=== PATIENT | female | born 1965 | race American Indian/Alaskan Native ===

== ENCOUNTER 2017-01-08 08:43 | Outpatient (CLI) | payer BC ==
[2017-01-08 09:46] LABS: Blood Urea Nitrogen 15 mg/dL (7-17)
--- NOTE | 2017-01-08 12:44 | Nuclear Medicine Report ---
BONE SCAN: History: Left breast cancer. Comparison: CT chest, abdomen and pelvis performed the same day. After injection of isotope, gamma camera imaging of the bony system was done. There is a normal uptake of isotope throughout the bony structures without areas of significantly increased or decreased uptake. Normal uptake in the urinary system is seen. IMPRESSION: Negative bone scan.
--- NOTE | 2017-01-08 15:17 | Cat Scan Report ---
CT CHEST WITH CONTRAST: HISTORY: Left breast cancer. TECHNIQUE: Helical CT following IV contrast. Sagittal and coronal reformatted images. FINDINGS: Heart size is normal. There is no evidence of adenopathy within the mediastinum. Pulmonary oyvani are free of any mass and the lungs are clear of infiltrates. The pleura is unremarkable. No masses involve the chest wall. No bony lesion. Bilateral breast prostheses are intact. IMPRESSION: Unremarkable CT scan of the chest.
--- NOTE | 2017-01-08 15:21 | Cat Scan Report ---
CT SCAN OF THE ABDOMEN AND PELVIS WITH CONTRAST: HISTORY: Left breast cancer. TECHNIQUE: Helical CT in 1.25mm intervals following IV contrast. Sagittal and coronal reconstructions. FINDINGS: The liver is normal in size and is without focal defect. No gallstones or biliary dilatation are noted. The spleen and pancreas demonstrate a normal size and attenuation with no evidence of abnormal mass. The left kidney and collecting system are unremarkable. There is a duplicated collecting system within the right kidney. The superior moiety is dilated. There is diffuse cortical thinning in the superior right kidney consistent with a chronic process. The lower moiety is not dilated although there is a 5.4 mm stone in the mid ureter of the lower moiety on image 420, series 2. The ureters appear diffuse distally just before the UVJ. There is no obvious ureterocele. The bladder is unremarkable. The adrenal glands are normal. There is no intestinal obstruction or ascites. Normal appendix. The abdominal aorta is normal. Hysterectomy changes are noted. No adnexal cyst or mass. There is no evidence of peritoneal air or fluid. There is no evidence of any abnormal masses or fluid collections within the pelvis. No adenopathy is identified. No suspicious bony lesion. IMPRESSION: No evidence for metastatic disease to the abdomen or pelvis. 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 The superior moiety is obstructed with diffuse cortical thinning of the superior right kidney. The inferior Katt. contains a 5.4 mm stone in the mid ureter. Please correlate for ureteral symptoms. Hysterectomy.
== END 2017-01-08 08:44 | disposition home or self-care (01) ==
LOC: NM 08:43
PROVIDERS: ATTEND Internal Medicine Hematology & Oncology
DX: C50.912 Malignant neoplasm of unspecified site of left female breast (principal); N20.1 Calculus of ureter; Z90.710 Acquired absence of both cervix and uterus; Z98.82 Breast implant status
CPT/HCPCS: 36415; 71260; 74177; 78306; 82565; 84520; A9503; Q9967

== ENCOUNTER 2017-02-20 12:48 | Day surgery (SDC) | payer BC ==
[~2017-02-20 12:48] MED LIST: ANCEF/STERILE WATER 2 GM/20 ML 2 GM/20 ML SYRINGE IV NR
[2017-02-20] MEDS ORDERED: NACL BACTERIOSTATIC INFILTRATI ONE (15:00)
[2017-02-20 15:40] LABS: Hematocrit 41.5 % (30.3-42.9); Hemoglobin 13.7 gm/dl (10.1-14.3)
--- NOTE | 2017-02-20 15:43 | Anesthesia Consultation ---
Anesthesia Consult and Med Hx Date of service: 02/20/17 - Airway Anesthetic Teeth Evaluation: Good, Crowns ROM Head & Neck: Adequate Mental/Hyoid Distance: Adequate Mallampati Class: Class II Intubation Access Assessment: Probably Good - Pulmonary Exam CTA: Yes - Cardiac Exam Cardiac Exam: RRR - Pre-Operative Health Status ASA Pre-Surgery Classification: ASA2 Proposed Anesthetic Plan: General - Pulmonary Hx Smoking: No Hx Sleep Apnea: No (EUNICE PRE SCREEN HIGH RISK) - Cardiovascular System Hx Hypertension: Yes (2009) - Hematic Hx Anemia: Yes (WITH CHEMO, 2009) - Other Systems Hx Cancer: Yes (HX of Breast Cancer) - Additional Comments Anesthesia Medical History Comments: NO BP ON RIGHT ARM
[2017-02-20] MEDS ORDERED: VERSED IV NR (15:44)
--- NOTE | 2017-02-20 15:44 | Anesthesia Day of Surgery ---
Anesthesia Day of Surgery - Day of Surgery Patient Examined: Yes Patient H&P Reviewed: Yes Patient is NPO: Yes
[2017-02-20] MEDS ORDERED: PEPCID IV NR (16:00)
[2017-02-20] MEDS ORDERED: NACL 0.9% 1000 ML 1,000 ML IV SCH (16:00)
[2017-02-20] MEDS ORDERED: ZOFRAN IV PRN (16:39)
[2017-02-20] MEDS ORDERED: DILAUDID IV PRN (16:39)
[2017-02-20] MEDS ORDERED: NORCO 5/325 PO PRN (16:39)
[2017-02-20] MEDS ORDERED: DIPRIVAN 10 MG/ML IV ONE (16:48)
[2017-02-20] MEDS ORDERED: SUBLIMAZE ONE (16:48)
--- NOTE | 2017-02-20 16:54 | Post Operative Note ---
Date of procedure: 02/20/17 Pre-op diagnosis: r renal stone Post-op diagnosis: same Findings: r hydro duplex r ston e Procedure: cysto r rpg stent Anesthesia: GETA Surgeon: DINORA ALMAGUER Estimated blood loss: none Condition: stable Disposition: PACU
--- NOTE | 2017-02-20 16:55 | Discharge Summary ---
Short Stay Discharge Plan Activity: other (no straining ) Weight Bearing Status: Full Weight Bearing Diet: regular Special Instructions: other (inc fluids ) Durable Medical Equipment Needed Upon Discharge: other (pt has j stent ) Follow up with: CHAYA STEVENS MD [Primary Care Provider] - 7 Days DINORA ALMAGUER MD [Staff Physician] - 7 Days
[2017-02-20] MEDS ORDERED: DECADRON ONE (17:01)
[2017-02-20] MEDS ORDERED: ZOFRAN ONE (17:01)
[2017-02-20] MEDS ORDERED: XYLOCAINE MPF 2% ONE (17:01)
[2017-02-20] MEDS ORDERED: WATER FOR IRRIG STERILE IR ONE ×2 (17:09)
[2017-02-20] MEDS ORDERED: OMNIPAQUE 300 MG/50 ML (CATH LAB) IV ONE ×2 (17:11)
[2017-02-20] MEDS ORDERED: ROBINUL ONE (17:12)
[2017-02-20] MEDS ORDERED: NACL 0.9% 100 ML ONE (17:15)
[2017-02-20] MEDS ORDERED: NEO SYNEPHRINE ONE (17:15)
[2017-02-20] MEDS ORDERED: ePHEDrine SULFATE ONE (17:16)
--- NOTE | 2017-02-20 18:30 | Post Anesthesia Evaluation ---
- Post Anesthesia Evaluation Patient Participated: Yes Airway Patent: Yes Stable Respiratory Function: Yes Temp > 96.8F: Yes Pain Manageable: Yes Adequeate Hydration: Yes Anesthesia Complications: No Block Receding Appropriately: Not Applicable
[2017-02-20 18:42] VITALS: BP 125/76
--- NOTE | 2017-02-20 21:11 | Operative Report ---
PREOPERATIVE DIAGNOSIS: Right ureteral stone. POSTOPERATIVE DIAGNOSES: Right ureteral stone with complete duplication on the right side and the stone in the lower pole moiety and a very hydronephrotic upper pole moiety, looks like it is a single sheath with 2 separate ureters. PROCEDURE: Cystoscopy, right retrograde in both ureters and 2 double-J stent in both ureters. SURGEON: Blake Sinclair MD ANESTHESIA: General. FINDINGS: This is a woman who has been having right flank pain for quite some time. She has been found on CT to have a duplex system with a very hydronephrotic upper pole system. She now presents for the cystoscopy. DESCRIPTION OF PROCEDURE: The patient was brought to the operating room and placed on the operating table. Following induction of anesthesia, placed in lithotomy position, prepped and draped in usual sterile fashion. Cystourethroscopy showed no bladder tumors. The epithelium was normal. There were two distinct ureteral orifices on the right side. More patulous was from the upper pole, was more distal and severe hydronephrosis at the level of vessels and there were no filling defects, but a lots of hydronephrosis. The ureter was straightened out with a wire, we placed a 28 cm 6-Thai in the upper pole moiety. In the lower pole, we saw a stone, in the ____ lower ureter, but it was very tight. There was question whether there was any infection, so to be safe, ____ looked like in a single sheath. We placed a wire in the lower pole moiety and we had some difficulty with very tight around the stone up, so we placed a 5-Thai stent coiled in the lower pole moiety. The patient tolerated the procedure well. She will come back for stone extraction and possible laser. We did not want to damage either ureter and so we left 2 stents, one in the upper pole moiety one in the lower pole moiety, brought to recovery room, family notified, in stable condition. JOB# [id number] ELIJAH/DANIA
--- NOTE | 2017-02-21 10:30 | Fluoroscopy Report ---
RETROGRADE PYELOGRAM: History: Right ureteral calculi, nephrolithiasis. The left pyelogram was not performed. The right pyelogram images demonstrate dilated upper and lower moieties of a duplicated right renal collecting system. Subsequent images demonstrate placement of 2 ureteral stents on the right side which adequately drain the collecting systems. Ureteroscopy was also performed by Dr. Sinclair, please correlate with the procedural report.
== END 2017-02-20 19:15 | disposition home or self-care (01) ==
LOC: OR 12:48
PROVIDERS: ATTEND Urology
DX: N13.2 Hydronephrosis with renal and ureteral calculous obstruction (principal); I10 Essential (primary) hypertension; D64.9 Anemia, unspecified; Z85.3 Personal history of malignant neoplasm of breast
CPT/HCPCS: 36415; 52332; 74420; 85014; 85018; C1726; C1758; C1769; C2617; J0690; J1100; J2250; J2370; J2405; J2704; J3010; J7030; Q9967

== ENCOUNTER 2017-03-13 10:38 | Day surgery (SDC) | payer BC ==
[~2017-03-13 10:38] MED LIST changes: +NACL 0.9% 1000 ML 1,000 ML IV SCH; +OMNIPAQUE 300 MG/50 ML (CATH LAB) IV ONE; +PEPCID PO NR; +VERSED IV NR; +WATER FOR IRRIG STERILE IR ONE
--- NOTE | 2017-03-13 11:11 | Anesthesia Consultation ---
Anesthesia Consult and Med Hx Date of service: 03/13/17 - Airway Anesthetic Teeth Evaluation: Good ROM Head & Neck: Adequate Mental/Hyoid Distance: Adequate Mallampati Class: Class II Intubation Access Assessment: Probably Good - Pre-Operative Health Status ASA Pre-Surgery Classification: ASA2 - Pulmonary Hx Smoking: No Hx Sleep Apnea: No (EUNICE PRE SCREEN HIGH RISK) - Cardiovascular System Hx Hypertension: Yes (2009) - Central Nervous System Hx Back Pain: Yes (FROM STONE) - Endocrine Hx Renal Disease: Yes (kidney stones) - Hematic Hx Anemia: Yes (WITH CHEMO, 2009) - Other Systems Hx Cancer: Yes (HX of Breast Cancer, s/p bilateral mastectomy with reconstruction)
--- NOTE | 2017-03-13 11:12 | Anesthesia Day of Surgery ---
Anesthesia Day of Surgery - Day of Surgery Patient Examined: Yes Patient H&P Reviewed: Yes Patient is NPO: Yes
[2017-03-13] MEDS ORDERED: NACL BACTERIOSTATIC INFILTRATI ONE (11:42)
[2017-03-13] MEDS ORDERED: SUBLIMAZE ONE (12:40)
[2017-03-13] MEDS ORDERED: DIPRIVAN 10 MG/ML IV ONE (12:40)
[2017-03-13] MEDS ORDERED: NORCO 5/325 PO PRN (12:41)
[2017-03-13] MEDS ORDERED: DILAUDID IV PRN (12:41)
[2017-03-13] MEDS ORDERED: ZOFRAN IV PRN (12:41)
[2017-03-13] MEDS ORDERED: WATER FOR IRRIG STERILE IR ONE (12:57)
[2017-03-13] MEDS ORDERED: DECADRON ONE (12:59)
[2017-03-13] MEDS ORDERED: ZOFRAN ONE (12:59)
[2017-03-13] MEDS ORDERED: XYLOCAINE MPF 2% ONE (13:00)
[2017-03-13] MEDS ORDERED: OMNIPAQUE 300 MG/50 ML (CATH LAB) IV ONE (13:01)
--- NOTE | 2017-03-13 13:40 | Post Operative Note ---
Date of procedure: 03/13/17 Pre-op diagnosis: r dupex with stone Post-op diagnosis: same Findings: as above Procedure: cysto rpg r ureteroscopy laser j stent Anesthesia: GETA Surgeon: DINORA ALMAGUER Estimated blood loss: none Pathology: list (stone) Specimen disposition: to lab Condition: stable Disposition: PACU
--- NOTE | 2017-03-13 13:41 | Discharge Summary ---
Short Stay Discharge Plan Activity: other (no straining ) Weight Bearing Status: Full Weight Bearing Diet: regular, low salt Special Instructions: other (inc fluids ) Durable Medical Equipment Needed Upon Discharge: other (has 2 j stents ) Follow up with: CHAYA STEVENS MD [Primary Care Provider] - 7 Days DINORA ALMAGUER MD [Staff Physician] - 14 Days
--- NOTE | 2017-03-13 13:59 | Post Anesthesia Evaluation ---
- Post Anesthesia Evaluation Patient Participated: Yes Airway Patent: Yes Stable Respiratory Function: Yes Nausea/Vomiting: No Temp > 96.8F: Yes Pain Manageable: Yes Adequeate Hydration: Yes Anesthesia Complications: No Block Receding Appropriately: Not Applicable Patient on Ventilator: No
--- NOTE | 2017-03-13 17:42 | Operative Report ---
PREOPERATIVE DIAGNOSIS: Duplex right collecting system with large obstructing stone in right lower pole moiety and chronic dilatation of the upper pole moiety. POSTOPERATIVE DIAGNOSIS: Duplex right collecting system with large obstructing stone in right lower pole moiety and chronic dilatation of the upper pole moiety. PROCEDURE: Cystoscopy, right retrograde in the lower pole with right lower ureteroscopy, laser of large stone and double-J stent replacement. SURGEON: Blake Sinclair M.D. ANESTHESIA: General. FINDINGS: This is a woman from [place] who had a very dilated upper pole moiety and lower pole moiety with an obstructing stone lower pole now presents for treatment. This is a staged procedure because it was so edematous and she had a bifid system. We did not want to damage either one of the ureters. DESCRIPTION OF PROCEDURE: The patient brought to the operating room and placed on the operating table. Following induction of anesthesia, placed in lithotomy position, prepped and draped in usual sterile fashion. The lower pole stent was grasped and a wire coiled in the collecting system without difficulty in the lower pole. At this point, ureteroscopy showed the stone, which was severely edematous around the wall of the ureter. Using a laser we broke it up into about 10 pieces. One small piece was sent to pathology. The patient tolerated the procedure well. While ureteroscope was proximal to where the stone was obstructing we placed another wire and a double-J stent in 22 coiled in the lower pole collecting system and bladder. The patient tolerated the procedure well. No significant bleeding, no significant complications, brought to recovery room. Family notified with two stents will be removed in about 2 weeks in stable condition. JOB# [id number] ELIJAH/DANIA
[2017-03-13 18:12] VITALS: BP 119/72
--- NOTE | 2017-03-14 08:00 | Fluoroscopy Report ---
SEVEN FLUOROSCOPIC IMAGES AT RIGHT RETROGRADE PYELOGRAM: 03/13/17 CLINICAL: Right ureteral stone. FINDINGS: [employer] images two right ureteral stents.. Subsequent images demonstrate exchange of the lower stent. For more detail, please refer to the operative report.
== END 2017-03-13 15:45 | disposition home or self-care (01) ==
LOC: OR 10:38
PROVIDERS: ATTEND Urology
DX: N20.0 Calculus of kidney (principal); N28.89 Other specified disorders of kidney and ureter; Q63.0 Accessory kidney; I10 Essential (primary) hypertension; D64.9 Anemia, unspecified; G47.33 Obstructive sleep apnea (adult) (pediatric); Z85.3 Personal history of malignant neoplasm of breast; Z90.13 Acquired absence of bilateral breasts and nipples; Z79.899 Other long term (current) drug therapy; Z88.8 Allergy status to other drugs, medicaments and biological substances
CPT/HCPCS: 36415; 52356; 74420; 82365; A4217; C1758; C1769; C2617; J0690; J1100; J2250; J2405; J2704; J7030; Q9967; J3010

== ENCOUNTER 2017-07-15 08:41 | Outpatient (CLI) | payer BC ==
--- NOTE | 2017-07-15 09:29 | Ultrasound Report ---
Bilateral breast ultrasound: Bilateral mastectomies with submuscular implants. No palpable findings or other symptoms at this time. Whole breast ultrasound fails to identify any focal parenchymal abnormality, abnormal shadowing or other significant finding. The implants appear intact. Of note is that CT scan in December 2016 showed no significant chest wall findings otherwise. Impression: No evidence of recurrent disease identified. Recommendation: Followup per your protocol. BI-RADS CATEGORY: 2 = Benign ACR BI-RADS MAMMOGRAPHIC CODES: 0 = Needs additional imaging evaluation; 1 = Negative; 2 = Benign; 3 = Probably benign; 4 = Suspicious; 5 = Malignant; 6 = Known biopsy-proven malignancy COMMENT: 1. Dense breast tissue, i.e., adenosis, fibrocystic changes, etc., may obscure an underlying neoplasm. 2. Approximately 10% of cancers are not detected with mammography. 3. A negative mammography report should not delay biopsy if a clinically suspicious mass is present.
== END 2017-07-15 08:42 | disposition home or self-care (01) ==
LOC: SPVWC 08:41
PROVIDERS: ATTEND Internal Medicine
DX: R92.8 Other abnormal and inconclusive findings on diagnostic imaging of breast (principal); I10 Essential (primary) hypertension; Z85.3 Personal history of malignant neoplasm of breast; Z90.13 Acquired absence of bilateral breasts and nipples; Z98.82 Breast implant status

== ENCOUNTER 2022-07-18 13:13 | Outpatient (CLI) | payer OTHER ==
--- NOTE | 2022-07-18 15:53 | Mammography Report ---
DEXA BONE DENSITY SCAN INDICATION / CLINICAL INFORMATION: OTHER SPECIFIED DISORDERS OF BONE DENSITY/STRUCTURE MULTIPLE SITE. 57 years Female COMPARISON: 12/26/16. LUMBAR SPINE, L1-L4: - Bone mineral density (BMD) = 0.851 g/cm2. - T-score = -2.7 - Change (%) since most recent prior (if available): 0.2% decrease. RIGHT HIP, : -Not performed. LEFT HIP, NECK : - Bone mineral density (BMD) = 0.760 g/cm2. - T-score = -1.3 - Change (%) since most recent prior (if available): 7.0% decrease. IMPRESSION: WHO Classification: Osteoporosis. Fracture Risk: High. Note: 10-Year Fracture Risk (FRAX) not reported. This DEXA unit lacks FRAX functionality. BMD Reporting Guidelines (ISCD, 2015) BMD Reporting in Postmenopausal Women and in Men Age 50 and Older - T-scores are preferred. - The WHO densitometric classification is applicable. BMD Reporting in Females Prior to Menopause and in Males Younger Than Age 50 - Z-scores, not T-scores, are preferred. This is particularly important in children. - A Z-score of -2.0 or lower is defined as below the expected range for age, and a Z-score above -2.0 is within the expected range for age. - Osteoporosis cannot be diagnosed in men under age 50 on the basis of BMD alone. - The WHO diagnostic criteria may be applied to women in the menopausal transition. http://www.iscd.org/official-positions/9854-vtsm-xrpqyfco-positions-adult/ Signer Name: Easton Corrales MD Signed: 07/18/2022 3:49 PM Workstation Name: [id number]
== END 2022-07-18 13:14 | disposition home or self-care (01) ==
LOC: SPVWC 13:13
DX: M85.88 Other specified disorders of bone density and structure, other site (principal); C50.919 Malignant neoplasm of unspecified site of unspecified female breast; R91.1 Solitary pulmonary nodule
CPT/HCPCS: 77080